=== PATIENT | female | born 1930 | race Caucasian/White ===

== ENCOUNTER → 2016-09-30 | Outpatient (CLI) | payer OTHER ==
[2016-09-30 12:55] LABS: HEMATOCRIT 43.7 % (37.0-47.0); MEAN CORPUSCULAR HEMOGLOBIN 28.3 PG (27-31); MEAN PLATELET VOLUME 9.8 FL (7.4-12.2); RDW COEFFICIENT OF VARIATION 13.7 % (11.5-14.5); RED BLOOD COUNT 4.95 10^6/uL (4.20-5.40); WHITE BLOOD COUNT 6.47 10^3/uL (4.8-10.8)
[2016-09-30 13:12] LABS: BILIRUBIN,TOTAL 0.4 mg/dL (0.3-1.2); BUN/CREATININE RATIO 26.66 (6-20); CALCIUM 9.5 mg/dL (8.7-10.7); CREATININE 0.9 mg/dL (0.50-1.20); POTASSIUM 4.8 meq/L (3.8-5.2); TOTAL PROTEIN 7.9 g/dL (6.1-8.0)
--- NOTE | 2016-09-30 13:25 | EKG ---
[address] [place] [address] Measurements Intervals [place] Rate: 72 P: 47 SD: 176 QRS: -55 QRSD: 118 T: 47 QT: 390 QTc: 414 Interpretive Statements SINUS RHYTHM WITH SINUS ARRHYTHMIA INDETERMINATE AXIS LOW QRS VOLTAGE IN PRECORDIAL LEADS RIGHT BUNDLE BRANCH BLOCK Compared to ECG 09/07/2015 12:55:17 Indeterminate axis now present Right bundle-branch block now present Incomplete right bundle-branch block no longer present Myocardial infarct finding no longer present Electronically Signed On 09-30-16 18:01:18 [facility] by Michele Espinoza [email or web address]
== END ==
LOC: LAB 12:32
PROVIDERS: ATTEND Nurse Practitioner Family
DX: I10 Essential (primary) hypertension (principal); I50.9 Heart failure, unspecified; R42 Dizziness and giddiness; R53.83 Other fatigue; I49.9 Cardiac arrhythmia, unspecified; I45.10 Unspecified right bundle-branch block
CPT/HCPCS: 36415; 80053; 83880; 84443; 84484; 85027; 93005; 93010

== ENCOUNTER 2016-11-02 09:38 | Emergency (ER) | payer OTHER ==
[2016-11-02] MEDS ORDERED: NORMAL SALINE 10 ML SYRINGE FLUSH IVP PRN (09:44)
[2016-11-02] MEDS ORDERED: Sodium Chloride 0.9% 500 ML PRIMARY IV ONE (09:44)
--- NOTE | 2016-11-02 09:54 | EKG ---
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
[2016-11-02 10:06] LABS: BASOPHILS # (AUTO) 0.02 10*3/UL; BASOPHILS % (AUTO) 0.2 % (0-1); EOSINOPHILS # (AUTO) 0.06 10*3/UL; EOSINOPHILS % (AUTO) 0.7 % (0-8); HEMATOCRIT 42.2 % (37.0-47.0); HEMOGLOBIN 13.2 g/dL (12.0-16.0); LYMPHOCYTES # (AUTO) 0.73 10*3/uL; MEAN CORPUSCULAR HEMOGLOBIN 28.5 PG (27-31); MEAN CORPUSCULAR HGB CONC 31.3 g/dL (33-37); MEAN PLATELET VOLUME 10.5 FL (7.4-12.2); MONOCYTES # (AUTO) 0.51 10*3/UL (0.3-0.8); MONOCYTES % (AUTO) 5.8 % (5-15); NEUTROPHILS % (AUTO) 84.9 % (50-80); PLATELET MORPHOLOGY COMMENT NORMAL MORPHOLOGY (NORM); RBC MORPHOLOGY COMMENT NORMAL MORPHOLOGY (NORM); RED BLOOD COUNT 4.63 10^6/uL (4.20-5.40); WBC MORPHOLOGY COMMENT NORMAL MORPHOLOGY (NORM)
--- NOTE | 2016-11-02 10:21 | PDOC ---
General Adult HPI - General Chief Complaint: Dyspnea Stated Complaint: DYSPNEA Date Seen by Provider: 11/02/16 Time Seen by Provider: 09:40 Source: POSITIVE: Patient Exam Limitations: POSITIVE: No limitations Nurse's Notes Reviewed & Considered: Yes - History of Present Illness Initial Comment: The patient is an 85-year-old female who is brought to the emergency department by ambulance with complaints of weakness, shortness of breath and passing out. She apparently has been having issues with intermittent lightheadedness and near syncope type symptoms which have been ongoing. She has been seeing the geriatric nursing assistant in [place]. She states for the past week or so she has had some increased weakness and shortness of breath especially with activity. This morning the symptoms seem to be much worse. She states that she got up from her chair and became very lightheaded and passed out falling back into her chair. She subsequently called EMS. When they arrived on scene she was bradycardic with a heart rate in the 30s. Her initial blood pressure was in the 120s systolic with her sitting. She was subsequently transported here to the emergency department. On arrival the patient is awake and alert and answers questions appropriately. She denies any chest pain. She does report feeling weak and a little bit lightheaded. She also feels short of breath however this has improved somewhat on oxygen. She states that she does get some swelling in her legs intermittently. She is not aware of any recent changes to her medications although she states that her primary care provider started her on a new pill a couple of months ago possibly for her heart rhythm. We were unable to track this medication down through the pharmacy. In reviewing her known medication list from here she is on an SALENA inhibitor as well as a statin however I do not see any prescriptions for beta kiera, calcium channel kiera or digoxin. She denies recent illness otherwise. Have you received a tetanus shot in the past 10 years?: Unknown - Patient Home Medications Home Medications: Home Medications Oxygen (O2) 1 l NASAL DAILY unit 01/17/13 Acetaminophen [Tylenol] 1 tab PO DAILY PRN #30 tab 01/31/13 Meclizine HCl 1 tab PO DAILY #30 tab 01/31/13 Multivitamin [Multi Vitamin Daily] 1 tab PO DAILY tab 03/06/13 Cetirizine HCl 1 tab PO DAILY #30 tab 09/12/14 Guaifenesin [Mucinex] 1 tab PO BID #20 tab 09/12/14 Hydrocodone/Acetaminophen [Hydrocodon-Acetaminophen 5-325] 1 each PO QID PRN # 120 tab 12/18/14 Lisinopril 1 tab PO DAILY #90 tab 12/18/14 Lovastatin 1 tab ORAL QHS #90 tab 12/18/14 Omeprazole 1 cap ORAL QD #90 capsule 12/18/14 - Patient Allergies Allergies/Adverse Reactions: Allergies Allergy/AdvReac Type Severity Reaction Status Date / Time methialate Allergy Severe RASH Uncoded 11/02/16 10:16 folate Allergy Unknown unk Uncoded 11/02/16 10:16 Past Medical History History of Sexually Transmitted Diseases: No Anesthesia Reactions: No Malignant Hyperthermia: No Significant Family History: Asthma, Diabetes, Heart disease, Hypertension, Lung disease, Renal disease Past Medical History Reviewed: Other (please comment) (She has not seen in our system here and I do not have access to her complete medical record. She does have listed as medical problems hypertension, hyperlipidemia, history of SVT, peripheral neuropathy and urinary incontinence. She does live at home and cares for herself.) ROS - Limitations ROS Limitations: No Limitations Constitution: DENIES: Chills, Fever Cardiovascular: REPORTS: Edema. DENIES: Chest Pain, Heart Palpitations Respiratory: REPORTS: Shortness Of Breath. DENIES: Hurts To Breathe Neurological: DENIES: Headache, Numbness, Weakness Gastrointestinal: DENIES: Nausea, Vomitting Musculoskeletal: REPORTS: Denies MS Symptoms Eyes: REPORTS: Denies Symptoms ENT: REPORTS: Denies Symptoms Skin: DENIES: Rash General Adult Exam - General Appearance General Appearance: POSITIVE: Alert, Cooperative, No Acute Distress - HEENT HEENT: POSITIVE: Head Inspection Nml, Eyes Inspection Nml, Ears Inspection Nml, Pharynx Inspect. Nml - Neck Neck: POSITIVE: Normal Inspection, Other (No JVD). NEGATIVE: Lymphadenopathy - Respiratory Respiratory: POSITIVE: No Respiratory Distress, Breath Sounds Normal - Cardiovascular Cardiovascular: POSITIVE: Other (Her heart rate is bradycardic in the 30s, no audible murmurs gallops or rubs) Peripheral Pulses: Dorsalis-pedis (R): 2+, Dorsalis-pedis (L): 2+ - Abdomen Abdomen: Soft: (All Quadrants), Denies Tenderness: (All Quadrants), No Distention: (All Quadrants) - Skin Skin: POSITIVE: Normal Color, No Rash - Extremities Extremity: Normal ROM: (All Extremities) Additional Extremities Details: Trace edema in the lower extremities bilaterally - Neurological / Psychological Neurological: POSITIVE: Other (No focal neurologic deficits) General Adult Progress - Results Reviewed by me Lab Results:: Laboratory Results 11/02/16 Range/Units 10:02 WBC 8.83 (4.8-10.8) 10^3/uL RBC 4.63 (4.20-5.40) 10^6/uL Hgb 13.2 (12.0-16.0) g/dL Hct 42.2 (37.0-47.0) % MCV 91.1 (81-99) FL MCH 28.5 (27-31) PG MCHC 31.3 L (33-37) g/dL RDW Std Deviation 45.6 (39-50) fL RDW Coeff of Sabi 14.0 (11.5-14.5) % Plt Count 207 (140-350) 10*3/uL MPV 10.5 (7.4-12.2) FL Immature Gran % (Auto) 0.1 (0-5) % Neut % (Auto) 84.9 H (50-80) % Lymph % (Auto) 8.3 L (10-50) % [place] % (Auto) 5.8 (5-15) % Eos % (Auto) 0.7 (0-8) % Baso % (Auto) 0.2 (0-1) % Immature Gran # (Auto) 0.01 10*3/UL Neut # (Auto) 7.50 10*3/UL Lymph # (Auto) 0.73 10*3/uL [place] # (Auto) 0.51 (0.3-0.8) 10*3/UL Eos # (Auto) 0.06 10*3/UL Baso # (Auto) 0.02 10*3/UL WBC Morphology Comment Normal morphology (NORM) Plt Morphology Comment Normal morphology (NORM) RBC Morph Comment Normal morphology (NORM) EKG Interpreted/Reviewed By Me:: Yes EKG Interpretation:: POSITIVE: Other (Patient's heart rate is 33 on her EKG done here as well as in the field, the QRS complexes widened, there does appear to be P waves independent of the QRS complexes and she appears to most likely be in third-degree AV block.) - Patient's Progress MDM / ED Course: On arrival the patient's heart rate remains in the 30s. She is awake and alert. She was placed on oxygen which did seem to help with her shortness of breath. She was not hypoxic even on room air. Her 12-lead EKG shows what appears to be third-degree AV block. Her blood pressure repeated here in the emergency room was 120/68. I did contact Dr. Arthur who is a geriatric nursing assistant on- call at [facility]. He agreed to accept the patient in transfer and arrangements will be made to transfer the patient there. Labs are still pending at this time. - Consult Counseled: POSITIVE: Patient, RE: DX Patient Care Time - Estimated PCT Patient Care Time (In Minutes): 30 Vital Signs - VS Reviewed Vital Signs Reviewed: Yes Discharge Clinical Impression: Bradycardia, Syncope Discharge Disposition: Transferred to Tertiary Care Facility Date Decision to Transfer to Another Facility: 11/02/16 Time Decision to Transfer to Another Facility: 10:15
[2016-11-02 10:26] LABS: CALCIUM 9.4 mg/dL (8.7-10.7)
--- NOTE | 2016-11-02 10:39 | DI ---
AP CHEST X-RAY, 11/02/2016 9:46 AM : Clinical History: Bradycardia. Previous Exam: 09/07/2015. There is no acute soft tissue or bony abnormality. There is cardiomegaly with CHF. The heart has assu med a "globular" configuration and with CHF, this is suspicious for a cardiomyopathy. A pericardial e ffusion could also produce this picture. There is no acute infiltrate or effusion. Mediastinal struct ures are normal. There are no pulmonary nodules. Reading: Cardiomegaly with CHF. Since the previous exam, the heart has assumed a "globular" configuration in t he differential for this appearance would be either a cardiomyopathy or a pericardial effusion.
[2016-11-02 11:05] VITALS: RESP 18; TEMP 97
== END 2016-11-02 10:33 | disposition short-term general hospital (02) ==
LOC: ER 09:38
DX: R00.1 Bradycardia, unspecified (principal); R06.02 Shortness of breath; R53.1 Weakness; R42 Dizziness and giddiness; R55 Syncope and collapse; I10 Essential (primary) hypertension; E78.5 Hyperlipidemia, unspecified
CPT/HCPCS: 71010; 80053; 83735; 83880; 84484; 85025; 85379; 93005; 93010; 99285

== ENCOUNTER → 2016-12-01 | Outpatient (CLI) | payer OTHER, MEDICARE | LOC: MMPC 11:11 | DX: I25.10 Atherosclerotic heart disease of native coronary artery without angina pectoris (principal); I10 Essential (primary) hypertension; I50.9 Heart failure, unspecified ==

== ENCOUNTER → 2017-01-23 | Outpatient (CLI) | payer OTHER, MEDICARE | LOC: MMPC 11:11 | DX: I44.2 Atrioventricular block, complete (principal); E78.5 Hyperlipidemia, unspecified; I10 Essential (primary) hypertension; I50.9 Heart failure, unspecified; E66.9 Obesity, unspecified; G60.9 Hereditary and idiopathic neuropathy, unspecified; I67.9 Cerebrovascular disease, unspecified; I25.10 Atherosclerotic heart disease of native coronary artery without angina pectoris; R73.9 Hyperglycemia, unspecified; Z95.0 Presence of cardiac pacemaker | CPT/HCPCS: 99213; G0463 ==